=== PATIENT | male | born 2000 | race African-American/Black ===

== ENCOUNTER 2025-06-03 08:17 | Emergency (ER) | payer OTHER ==
[~2025-06-03] VITALS: Ht 180.3 cm; Wt 77.1 kg
[2025-06-03] MEDS: DEXAMETHASONE SOD PHOSPHATE 4 MG INJ IV ONE ×2 (08:30→09:08)
[2025-06-03] MEDS ORDERED: CEFTRIAXONE /D5W 50ML IVPB **ER PYXIS IV ONE (08:55)
[2025-06-03] MEDS ORDERED: DEXAMETHASONE SOD PHOSPHATE 10 MG INJ ONE (08:55)
[2025-06-03] MEDS ORDERED: VANCOMYCIN IV 200 ML ONE (08:55)
[2025-06-03 09:03] LABS: CREATININE 1.3 mg/dL (0.6-1.3); SODIUM SERUM 133 mmol/L (136-145); UREA NITROGEN, BLOOD 11 mg/dL (7-18)
[2025-06-03 09:05] LABS: RED BLOOD CELL COUNT(AUTO) 6.19 MIL/uL (4.06-5.63); RED CELL DISTRIBUTION WIDTH 15.0 % (12.1-16.2); WHITE BLOOD COUNT (AUTO) 14.0 K/uL (3.6-10.2)
[2025-06-03] MEDS: CEFTRIAXONE 2 G in IV DEXTROSE 5% 100 ML IV ONE (09:08)
[2025-06-03] MEDS: IV NORMAL SALINE 1000 ML BAG IV ONE (09:08)
[2025-06-03 09:10] LABS: ASPARTATE AMINOTRANSFERASE 24 U/L (15-37); TOTAL PROTEIN, SERUM 8.4 g/dL (6.4-8.2)
[2025-06-03 09:14] LABS: LACTIC ACID 2.3 mmol/L (0.4-2.0)
[2025-06-03 09:25] LABS: PLATELET COUNT (AUTO) 183 K/uL (152-348)
[2025-06-03 10:43] LABS: ABG BASE EXCESS -2.4 mmol/L (-2.0-3.0); ABG HCO3 17.9 mmol/L (21.0-28.0); ABG PCO2 21.4 mmHg (35.0-48.0); ABG PH 7.540 (7.350-7.450); ABG PO2 82.3 mmHg (83.0-108.0); ABG SITE RIGHT RADIAL; ABG TOTAL HEMOGLOBIN 14.4 G/dL (13.5-17.5); AaDO2 97.4 mmHg; FIO2 21.0 %; FLOW, BLOOD GAS 0.00 L/min (0.00-30.00)
[2025-06-03] MEDS: VANCOMYCIN IV 1,000 MG in IV DEXTROSE 5% 250 ML IV ONE (11:00)
[2025-06-03 11:19] LABS: *BILIRUBIN,URIN NEGATIVE (NEGATIVE); *CLARITY,URINE CLEAR (CLEAR); *COLOR,URINE YELLOW (YELLOW); *KETONES,URINE 3+ (NEGATIVE); *PROTEIN,URINE NEGATIVE (NEGATIVE); *UROBILINOGEN,URINE 0.2 E.U./dl (NORMAL); LEUKOCYTE ESTERASE ,URINE NEGATIVE (NEGATIVE); NITRITE, URINE NEGATIVE (NEGATIVE); UGLUCOSE NEGATIVE (NEGATIVE)
[2025-06-03 11:20] LABS: *BLOOD, URINE TRACE (NEGATIVE)
[2025-06-03 11:30] VITALS: BP 145/84
[2025-06-03 14:15] VITALS: BP 132/78; TEMP 98; O2SAT 99
== END 2025-06-03 13:25 | disposition home or self-care (01) ==
LOC: ER 08:17
DX: E86.0 Dehydration (principal); B34.9 Viral infection, unspecified; R11.10 Vomiting, unspecified; R20.0 Anesthesia of skin; R20.2 Paresthesia of skin; R50.9 Fever, unspecified; Z20.822 Contact with and (suspected) exposure to COVID-19
CPT/HCPCS: 99285; 96365; 96366; 71045; 96375; 87426; 87804 ×2; 80076; 80048; 81001; 83880; 85025; 84145; 85730; 87040 ×2; 87086; 84484 ×2; 36415; 93005; 96368; 83605 ×2; 36600 ×2; J0696 ×2; J1100; J3373; J7040 ×3; A4606; A4663